=== PATIENT | female | born 1970 | race Caucasian/White ===

== ENCOUNTER 2021-06-15 12:15 | Emergency (ER) | payer MEDICAID ==
[~2021-06-15] VITALS: Ht 170.2 cm; Wt 70.8 kg
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
[2021-06-15] MEDS ORDERED: CARI350T PO (12:53)
--- NOTE | 2021-06-15 13:30 | NUR ---
Patient discharged to home in stable condition. Written and verbal after care instructions given. Patient verbalizes understanding of instruction.
[2021-06-15 13:51] VITALS: BP 126/84
== END 2021-06-15 13:52 | disposition home or self-care (01) ==
LOC: ER 12:30
DX: S13.8XXA Sprain of joints and ligaments of other parts of neck, initial encounter (principal); Z79.899 Other long term (current) drug therapy; V49.49XA Driver injured in collision with other motor vehicles in traffic accident, initial encounter; Y93.89 Activity, other specified; Y92.488 Other paved roadways as the place of occurrence of the external cause; Y99.8 Other external cause status

== ENCOUNTER 2022-04-09 13:25 | Emergency (ER) | payer MEDICAID ==
[~2022-04-09] VITALS: Ht 170.2 cm; Wt 74.4 kg
[~2022-04-09 13:25] MED LIST: CARI350T PO
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
[2022-04-09] MEDS ORDERED: IBUPROFEN 600 MG TABLET ONE (13:57)
--- NOTE | 2022-04-09 13:58 | NUR ---
[facility] taking Port Xray at bedside now. Pt given 600mg IB per EDMD order. Pt states he has 7-8/10 pain in the Cspine sharp pinching pain running down her back to the lower lumbar. All needs met, pt in pos of comfort, bed dropped, rails up, Pt waiting patiently for xray results. No s/sx of distress present. Pt is otherwise healthy with no med issues and no medications.
[2022-04-09] MEDS ORDERED: IBUPROFEN 600 MG TABLET PO ONE (14:00)
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
[2022-04-09] MEDS ORDERED: CYCL10TA9 PO (14:49)
[2022-04-09] MEDS ORDERED: NAPR-1164 PO (14:49)
--- NOTE | 2022-04-09 15:38 | NUR ---
Pt given dc instructions and med infor, pt acknowledged understanding of aftercare. All quetions answered. VSS, PE WNL , NAD. Pt ambulated out of dept with steady gait. no s/sxof distress noted.
[2022-04-09 15:39] VITALS: BP 117/78
== END 2022-04-09 15:05 | disposition home or self-care (01) ==
LOC: ER 13:32
DX: S13.4XXA Sprain of ligaments of cervical spine, initial encounter (principal); S39.012A Strain of muscle, fascia and tendon of lower back, initial encounter; Z79.899 Other long term (current) drug therapy; V43.62XA Car passenger injured in collision with other type car in traffic accident, initial encounter; Y93.89 Activity, other specified; Y92.89 Other specified places as the place of occurrence of the external cause; Y99.8 Other external cause status
CPT/HCPCS: 72040-TC; 72100-TC